=== PATIENT | male | born 2000 | race Caucasian/White ===

== ENCOUNTER 2019-11-10 14:58 | Emergency (ER) | payer OTHER ==
[2019-11-10] MEDS ORDERED: Lidocaine/EPINEPHrine/Tetracaine Soln 5 ML Each TOP ONE (16:02)
--- NOTE | 2019-11-10 16:10 | EDM.PDOC ---
ED HPI GENERAL MEDICAL PROBLEM - General Chief Complaint: Laceration Stated Complaint: LT POINTER FINGER LACERATION Time Seen by Provider: 11/10/19 15:10 Source of Information: Reports: Patient History Limitations: Reports: No Limitations - History of Present Illness INITIAL COMMENTS - FREE TEXT/NARRATIVE: Patient presented to the ED because of a finger injury. He was cutting cardozo and chopped a portion on the left index finger tip. He is able to extend and flexed his finger without any difficulty. L 2nd digit Pain Score (Numeric/FACES): 3 - Related Data Allergies Allergy/AdvReac Type Severity Reaction Status Date / Time Penicillins Allergy Hives Verified 11/10/19 15:11 Home Meds: Home Meds NK [No Known Home Meds] 11/10/19 [History] Past Medical History Respiratory History: Reports: Asthma - Past Surgical History HEENT Surgical History: Reports: Adenoidectomy, Oral Surgery, Tonsillectomy, Other (See Below) Other HEENT Surgeries/Procedures: L ear surgery Social & Family History - Family History Family Medical History: Noncontributory - Tobacco Use Smoking Status *Q: Former Smoker Years of Tobacco use: 1 Used Tobacco, but Quit: Yes Month/Year Tobacco Last Used: 2017 - Caffeine Use Caffeine Use: Reports: Coffee, Soda - Alcohol Use Days Per Week of Alcohol Use: 1 Number of Drinks Per Day: 1 Total Drinks Per Week: 1 - Recreational Drug Use Recreational Drug Use: Yes ED ROS GENERAL - Review of Systems Review Of Systems: See Below Constitutional: Reports: No Symptoms HEENT: Reports: No Symptoms Respiratory: Reports: No Symptoms Cardiovascular: Reports: No Symptoms Endocrine: Reports: No Symptoms GI/Abdominal: Reports: No Symptoms : Reports: No Symptoms Musculoskeletal: Reports: No Symptoms Skin: Reports: Wound ED EXAM, SKIN/RASH Exam: See Below Exam Limited By: No Limitations General Appearance: Alert, WD/WN, No Apparent Distress Ears: Normal External Exam, Normal Canal, Hearing Grossly Normal, Normal TMs Nose: Normal Inspection, Normal Mucosa, No Blood Throat/Mouth: Normal Inspection, Normal Lips, Normal Teeth, Normal Gums, Normal Oropharynx, Normal Voice, No Airway Compromise Head: Atraumatic, Normocephalic Neck: Normal Inspection, Supple, Non-Tender, Full Range of Motion Respiratory/Chest: No Respiratory Distress, Lungs Clear, Normal Breath Sounds, No Accessory Muscle Use, Chest Non-Tender Cardiovascular: Normal Peripheral Pulses, Regular Rate, Rhythm, No Edema, No Gallop, No JVD, No Murmur, No Rub GI/Abdominal: Normal Bowel Sounds, Soft, Non-Tender, No Organomegaly, No Distention, No Abnormal Bruit, No Mass (Male) Exam: No Hernia, Normal Inspection, Normal Prostate, Circumcised Rectal (Males) Exam: Normal Exam, Normal Rectal Tone, Prostate Normal Back Exam: Normal Inspection, Full Range of Motion, NT Extremities: Normal Inspection, Normal Range of Motion, Non-Tender, No Pedal Edema, Normal Capillary Refill Neurological: Alert, Oriented, CN II-XII Intact, Normal Cognition, Normal Gait, Normal Reflexes, No Motor/Sensory Deficits Psychiatric: Normal Affect, Normal Mood Skin: Warm, Other (partial amputation left index finger tip) Lymphatic: No Adenopathy Course - Vital Signs Text/Narrative:: There is nothing to suture because its a partial finger tip amputation( Last Recorded V/S: Last Vital Signs Temp 36.2 C 11/10/19 15:07 Pulse 63 11/10/19 15:07 Resp 18 11/10/19 15:07 BP 125/63 11/10/19 15:07 Pulse Ox 99 11/10/19 15:07 - Orders/Labs/Meds Orders: Active Orders 24 hr Category Date Time Status EPINEPHrine/Lidocaine/Tetracai [LET Soln] Med 11/10/19 16:02 Once 5 ml TOP ONETIME ONE Departure - Departure Time of Disposition: 16:00 Disposition: Home, Self-Care 01 Condition: Good Clinical Impression: Amputation of finger tip - Discharge Information Referrals: PCP,None [Primary Care Provider] - Additional Instructions: take ibuprofen 800 mg with tylenol 1000 mg every 8 hours as needed for pain starting tomorrow, do not cover the wound when you're inside the house(air dry) apply vaseline before covering it when you're out of the house so the new skin that is forming will not be ripped off when you remove the covering/dressing follow up as needed Sepsis Event Note - Evaluation Sepsis Screening Result: No Definite Risk - Focused Exam Vital Signs: Vital Signs Temp Pulse Resp BP Pulse Ox 11/10/19 15:07 36.2 C 63 18 125/63 99 Date Exam was Performed: 11/10/19 Time Exam was Performed: 16:03 - My Orders Last 24 Hours: My Active Orders 11/10/19 16:02 EPINEPHrine/Lidocaine/Tetracai [LET Soln] 5 ml TOP ONETIME ONE - Assessment/Plan Last 24 Hours: My Active Orders 11/10/19 16:02 EPINEPHrine/Lidocaine/Tetracai [LET Soln] 5 ml TOP ONETIME ONE
== END 2019-11-10 17:50 | disposition home or self-care (01) ==
LOC: FB.ED 14:58
DX: S68.121A Partial traumatic metacarpophalangeal amputation of left index finger, initial encounter (principal); J45.909 Unspecified asthma, uncomplicated; Z79.899 Other long term (current) drug therapy; Z87.891 Personal history of nicotine dependence; Z88.0 Allergy status to penicillin; Y92.219 Unspecified school as the place of occurrence of the external cause; W26.0XXA Contact with knife, initial encounter
CPT/HCPCS: 99282; A9270-GY